=== PATIENT | male | born 1960 | race Caucasian/White ===

== ENCOUNTER 2022-06-25 13:12 | Emergency (ER) | payer OTHER, SELFPAY ==
--- NOTE | ~2022-06-25 | US_ITS ---
EXAMINATION: US VENOUS ULTRASOUND WITH DOPPLER LOWER EXTREMITY, LEFT CLINICAL INFORMATION: Swelling and redness x4 days COMPARISON: None TECHNIQUE: Ultrasound of the deep veins is performed from the hip to the calf with compression sonography and color and pulse Doppler assessment. Spectral analysis with color-flow imaging is performed. FINDINGS: There is normal venous compression and respiratory variation and augmented flow. The visualized common femoral vein, superficial femoral vein, profunda femoral vein, popliteal vein, and the trifurcation region shows no evidence of deep venous thrombosis. Mildly prominent normal architecture left groin lymph node seen measuring 2.9 x 1.1 x 3.5 cm. If the patient's symptoms persist, followup ultrasound in 5 days 7 days might be of value to exclude proximal propagation from a non-visualized calf vein. US/US venous duplex LE IMPRESSION: No DVT demonstrated in the left lower extremity.
[2022-06-25 13:15] VITALS: BP 150/93; PULSE 88; RESP 16; TEMP 36.6; O2SAT 99; BMI 29.8
--- NOTE | 2022-06-25 13:16 | ED.GENADULT ---
HPI - General Adult General Chief complaint: Extremity Problem <Sravani Liang NP - Last Filed: 06/25/22 13:19> Stated complaint: L foot swelling/redness <Sravani Liang NP - Last Filed: 06/25/22 13:19> Time Seen by Provider: 06/25/22 14:19 <Sravani Liang NP - Last Filed: 06/25/22 13:19> Source: patient <GARO Delgado - Last Filed: 06/25/22 16:03> Mode of arrival: ambulatory <GARO Delgado - Last Filed: 06/25/22 16:03> Limitations: no limitations <GARO Delgado Last Filed: 06/25/22 16:03> History of Present Illness HPI narrative: 62-year-old male who denies any medical history presenting to the ER with complaints of atraumatic left lower extremity pain/redness/swelling for the past 5 days worse today. Reports he had a temperature a few days ago at 101.0. He called [facility] and they came to his house and reported that he would need an ultrasound to rule out a DVT. He reports he has never had this in the past. He denies any fevers since he had the fever a few days ago. He denies any dizziness, neck pain/stiffness, chest pain or shortness of breath, dyspnea exertion, orthopnea, palpitations, paresthesias, calf tenderness, recent travel on a long plane/train/car ride, history of DVT or PE, hypercoagulation disorder, history of cancer, recent falls or trauma, recent immobilization or surgery or any other symptoms complaints or concerns at this time. <GARO Delgado - Last Filed: 06/25/22 16:03> MD complaint: Left lower extremity pain/swelling/redness <GARO Delgado Last Filed: 06/25/22 16:03> Onset (ago): day(s) (5) <GARO Delgado Last Filed: 06/25/22 16:03> Location: left and lower extremity <GARO Delgado Last Filed: 06/25/22 16:03> Severity: moderate <GARO Delgado Last Filed: 06/25/22 16:03> Quality: aching <GARO Delgado Last Filed: 06/25/22 16:03> Pain Consistency: constant <GARO Delgado Last Filed: 06/25/22 16:03> Relieving factors: none <GARO Delgado Last Filed: 06/25/22 16:03> Exacerbating factors: other (Palpation) <GARO Delgado Last Filed: 06/25/22 16:03> Associated symptoms: denies other symptoms <GARO Delgado Last Filed: 06/25/22 16:03> Treatments prior to arrival: none <GARO Delgado Last Filed: 06/25/22 16:03> Related Data Home medications: Previous Rx's Medication Instructions Recorded cephalexin 500 mg capsule 500 mg PO Q6H 10 days #40 caps 06/25/22 doxycycline monohydrate 100 mg 100 mg PO BID 10 days #20 tabs 06/25/22 tablet <Sravani Liang NP - Last Filed: 06/25/22 13:19> Allergies/adverse reactions: Allergies Allergy/AdvReac Type Severity Reaction Status Date / Time No Known Allergies Allergy Verified 06/25/22 13:17 <ZHENG Hall Last Filed: 06/25/22 13:19> Review of Systems Review of Systems: Constitutional : No Weight loss, No Fever, No Chills, No Night Sweats, No Fatigue, No Malaise ENT/Mouth : No Hearing loss, No Ear Pain, No Nasal Congestion, No Sinus Pain, No Hoarseness, No sore throat, No Rhinorrhea, No Swallowing Difficulty Eyes: No Eye Pain, No Swelling, No Redness, No Foreign Body, No Discharge, No Vision Changes Cardiovascular : No Chest Pain, No SOB, No Dyspnea on Exertion, No Orthopnea, No Edema, No Palpitations Respiratory : No Cough, No Sputum, No Wheezing, No Smoke Exposure, No Dyspnea Gastrointestinal : No Nausea, No Vomiting, No Diarrhea, No Constipation, No abdominal Pain, No Hematochezia, No Melena Genitourinary : no irregular bleeding, No Dysuria, No Urinary Frequency, No Hematuria, No Urinary Incontinence, No Urgency, No Flank Pain, No Urinary Flow Changes, No Hesitancy Musculoskeletal : No joint pain, No Myalgias, No Joint Swelling Skin : +LLE leg swelling/erythema/pain, No Skin Lesions Neuro : No Weakness, No Numbness, No Paresthesias, No Loss of Consciousness, No Dizziness, No Headache Psych : No Anxiety/Panic, No Depression, No SI/HI/AH/VH, No Social Issues, Heme/Lymph: No Bruising, No Bleeding,No Lymphadenopathy Endocrine : No Polyuria, No Polydipsia, No Temperature Intolerance <GARO Delgado - Last Filed: 06/25/22 16:03> Yes all other systems are reviewed and are negative <GARO Delgado - Last Filed: 06/25/22 16:03> FOR[facility]LY [facility] Past Medical History Attestation statement: The following information was validated with the patient. <GARO Delgado - Last Filed: 06/25/22 16:03> Source: old records reviewed and nursing notes reviewed <GARO Delgado - Last Filed: 06/25/22 16:03> Social History Social History: Social History Alcohol intake: never Smoked in Last 30 Days: No Use of substances other than those prescribed or required for medical reasons: No Advance Directives: No Advance Directives Information Provided: No <Sravani Liang NP - Last Filed: 06/25/22 13:19> Physical Exam ED Vital Signs: Vital Signs - 24 hr 06/25/22 13:15 Temperature 97.9 F Pulse Rate 88 Respiratory Rate 16 Blood Pressure 150/93 H Pulse Oximetry 99 Oxygen Delivery Method Room Air BMI result Body Mass Index 29.8 <Sravani Liang NP - Last Filed: 06/25/22 13:19> Vital Signs - 24 hr 06/25/22 13:15 Temperature 97.9 F Pulse Rate 88 Respiratory Rate 16 Blood Pressure 150/93 H Pulse Oximetry 99 Oxygen Delivery Method Room Air BMI result Body Mass Index 29.8 vital signs have been reviewed as normal and appeared to be correct. Blood pressure normal. Heart rate normal. Respiration rate normal. Temperature normal. Oxygen saturation normal. <GARO Delgado Last Filed: 06/25/22 16:03> Appearance: Alert. Oriented X3. No acute distress. Head: Normal external exam. Normocephalic. Atraumatic. Eyes: PERRLA. EOMI. Conjunctiva and sclera normal. Eyelids normal. ENT: Pharynx normal. Uvula midline. Moist mucous membranes. No lesions/ulcerations or masses noted on the tongue. Normal voice. No trismus noted. No drooling noted. No muffled voice noted. Neck: Normal inspection. Neck supple. FROM. No adenopathy. Thyroid Normal. No tracheal deviation noted. No crepitus is noted. No meningeal signs. No neck mass noted. No signs of trauma noted. CVS: Normal heart rate and rhythm. Heart sound normal. Pulses normal throughout. No murmurs/rales/gallops. Respiratory: No respiratory distress. Painless inspiration. Breath sounds normal. No wheezes/rales/rhonchi noted. Chest nontender. No crepitus is noted. No signs of trauma noted. No accessory muscle usage noted or decreased air movement noted. No signs of trauma. Back: Full range of motion noted. Nontender. Skin: Skin warm and dry. Normal skin color. Normal skin turgor. To left lower extremity patient has moderate erythema/warm to touch and tenderness palpation with soft tissues swelling at the proximal aspect of the foot radiating all the way up to the knee circumferential. No additional rashes/lesions/lacerations noted. Extremities: + LLE edema. No right lower extremity edema or calf tenderness noted. No left calf tenderness noted. No calf tenderness is noted. Extremities exhibit normal range of motion and nontender. Neuro: Oriented X 3. No motor deficit. No sensory deficit. Reflexes normal. Normal steady gait. No focal neuro deficits noted. CN's II-XII intact bilaterally? Vascular: + radial pulses/+ 2 distal pedal pulses/+2 dorsalis pedis b/l. Normal cap refill. No cyanosis noted to upper extremity nails and lower extremity toes nails. <GARO Delgado - Last Filed: 06/25/22 16:03> Course Course Course Narrative: This is a rapid medical exam> Deferred additional HPI, ROS, PE to primary provider. 62 yo male healthy here with LLE redness/swelling, +max temp 101 x 5 days with no known injury or trauma. Seen by dispatch and recommended to come in for US to r/o DVT. Will obtain labs, ultrasound. VSS <Sravani Liang NP - Last Filed: 06/25/22 13:19> Reevaluation(s) Reevaluation #1: 62-year-old male who denies any medical history presenting to the ER with complaints of atraumatic left lower extremity pain/redness/swelling for the past 5 days worse today. Reports he had a temperature a few days ago at 101.0. He called [facility] and they came to his house and reported that he would need an ultrasound to rule out a DVT. Not c/w necrotizing fasciitis/ myositis/ arterial occlusion/ osteomyelitis/ compartment syndrome/ septic joint Labs obtained reviewed patient's H&H 13.9/40.0. Potassium 3.2. BUN 20. Random glucose 124. AST/ALT 38/42. Lactic acid within normal limits. Blood cultures pending. Otherwise all other labs are within normal limits. Venous duplex ultrasound of left lower extremity negative for DVT or any other acute processes. I did consider admission although the patient has not been on any antibiotics therefore will trial a course of antibiotics and her symptoms worsen patient will need to return within 48 hours for admission. Otherwise will DC home antibiotics and symptomatic treatment. Will also give p.o. potassium at this time with instructions to follow-up with PCP within the next few days. Patient understands agrees with this plan. <GARO Delgado - Last Filed: 06/25/22 16:03> Time: 15:50 <GARO Delgado - Last Filed: 06/25/22 16:03> Medications Administered Discontinued Medications Generic Name Dose Route Start Last Admin Trade Name Freq PRN Reason Stop Dose Admin Ceftriaxone Sodium 2 gm/ 50 mls @ 100 mls/hr 06/25/22 15:03 06/25/22 15:25 Sodium Chloride IV 06/25/22 15:32 100 mls/hr ONCE ONE Administration <Sravani Liang NP - Last Filed: 06/25/22 13:19> Medications Administered Discontinued Medications Generic Name Dose Route Start Last Admin Trade Name Freq PRN Reason Stop Dose Admin Ceftriaxone Sodium 2 gm/ 50 mls @ 100 mls/hr 06/25/22 15:03 06/25/22 15:25 Sodium Chloride IV 06/25/22 15:32 100 mls/hr ONCE ONE Administration <GARO Delgado - Last Filed: 06/25/22 16:03> Medical Decision Making Lab Data MDM Lab Attestation statement: I reviewed the patient's lab results. <GARO Delgado - Last Filed: 06/25/22 16:03> Result Diagrams: 06/25/22 13:50 06/25/22 13:50 <Sravani Liang NP - Last Filed: 06/25/22 13:19> Labs: Lab Results 06/25/22 06/25/22 06/25/22 Range/Units 13:50 13:50 13:50 WBC 9.9 (4.8-10.8) X10*3/uL RBC 4.80 (4.60-5.80) X10*6/uL Hgb 13.9 L (14.0-18.0) g/dl Hct 40.0 L (42.0-52.0) % MCV 83.3 (80.0-98.0) fL MCH 29.0 (27.0-33.0) pg MCHC 34.8 (31.0-36.0) g/dl RDW 13.9 (11.0-16.0) % Plt Count 214 (160-400) X10*3/uL MPV 10.7 (9.4-12.4) fL Immature Gran % (Auto) 0.5 H (0.0-0.4) % Neut % (Auto) 59.7 (45-73) % Lymph % (Auto) 27.5 (20-40) % [place] % (Auto) 10.3 (2-11) % Eos % (Auto) 1.7 (0-4) % Baso % (Auto) 0.3 (0-2) % Lymph # (Auto) 2.7 (1.2-4.9) X10*3/uL [place] # (Auto) 1.0 (0.1-1.2) X10*3/uL Eos # (Auto) 0.2 (0.0-0.4) X10*3/uL Baso # (Auto) 0.0 (0.0-0.2) X10*3/uL Abs Immat Gran (auto) 0.05 H (0.00-0.03) X10*3/uL Absolute Neuts (auto) 5.9 (2.0-8.3) x10*3/uL Absolute Nucleated RBC 0.000 (0.0-0.012) X10*3/uL Nucleated RBC % (auto) 0.0 (0.0-0.2) /100WBC PT 10.7 (10.0-13.1) SEC INR 0.9 (0.9-1.1) Sodium 141 (135-145) mmol/L Potassium 3.2 L (3.3-5.1) mmol/L Chloride 101 (96-108) mmol/L Carbon Dioxide 29 (22-29) mmol/L Anion Gap 14 (12-20) BUN 20 H (9-16) mg/dL Creatinine 1.17 (0.5-1.4) mg/dL Estim Creat Clear Calc 79.0 Estimated GFR > 60 Random Glucose 124 H (60-115) mg/dL Lactic Acid (0.5-2.0) mmol/L Calcium 9.1 (8.4-10.2) mg/dL Total Bilirubin 0.6 (0.0-1.0) mg/dL Direct Bilirubin 0.2 (0.0-0.5) mg/dL AST 38 H (5-37) U/L ALT 42 H (0-40) U/L Alkaline Phosphatase 71 (39-117) U/L Total Protein 6.9 (6.5-8.0) g/dL Albumin 3.8 (3.5-5.0) g/dL 06/25/22 Range/Units 13:50 WBC (4.8-10.8) X10*3/uL RBC (4.60-5.80) X10*6/uL Hgb (14.0-18.0) g/dl Hct (42.0-52.0) % MCV (80.0-98.0) fL MCH (27.0-33.0) pg MCHC (31.0-36.0) g/dl RDW (11.0-16.0) % Plt Count (160-400) X10*3/uL MPV (9.4-12.4) fL Immature Gran % (Auto) (0.0-0.4) % Neut % (Auto) (45-73) % Lymph % (Auto) (20-40) % [place] % (Auto) (2-11) % Eos % (Auto) (0-4) % Baso % (Auto) (0-2) % Lymph # (Auto) (1.2-4.9) X10*3/uL [place] # (Auto) (0.1-1.2) X10*3/uL Eos # (Auto) (0.0-0.4) X10*3/uL Baso # (Auto) (0.0-0.2) X10*3/uL Abs Immat Gran (auto) (0.00-0.03) X10*3/uL Absolute Neuts (auto) (2.0-8.3) x10*3/uL Absolute Nucleated RBC (0.0-0.012) X10*3/uL Nucleated RBC % (auto) (0.0-0.2) /100WBC PT (10.0-13.1) SEC INR (0.9-1.1) Sodium (135-145) mmol/L Potassium (3.3-5.1) mmol/L Chloride (96-108) mmol/L Carbon Dioxide (22-29) mmol/L Anion Gap (12-20) BUN (9-16) mg/dL Creatinine (0.5-1.4) mg/dL Estim Creat Clear Calc Estimated GFR Random Glucose (60-115) mg/dL Lactic Acid 1.3 (0.5-2.0) mmol/L Calcium (8.4-10.2) mg/dL Total Bilirubin (0.0-1.0) mg/dL Direct Bilirubin (0.0-0.5) mg/dL AST (5-37) U/L ALT (0-40) U/L Alkaline Phosphatase (39-117) U/L Total Protein (6.5-8.0) g/dL Albumin (3.5-5.0) g/dL <Sravani Liang, [employer] SALES CONSULTANT - Last Filed: 06/25/22 13:19> Lab Results 06/25/22 06/25/22 06/25/22 Range/Units 13:50 13:50 13:50 WBC 9.9 (4.8-10.8) X10*3/uL RBC 4.80 (4.60-5.80) X10*6/uL Hgb 13.9 L (14.0-18.0) g/dl Hct 40.0 L (42.0-52.0) % MCV 83.3 (80.0-98.0) fL MCH 29.0 (27.0-33.0) pg MCHC 34.8 (31.0-36.0) g/dl RDW 13.9 (11.0-16.0) % Plt Count 214 (160-400) X10*3/uL MPV 10.7 (9.4-12.4) fL Immature Gran % (Auto) 0.5 H (0.0-0.4) % Neut % (Auto) 59.7 (45-73) % Lymph % (Auto) 27.5 (20-40) % [place] % (Auto) 10.3 (2-11) % Eos % (Auto) 1.7 (0-4) % Baso % (Auto) 0.3 (0-2) % Lymph # (Auto) 2.7 (1.2-4.9) X10*3/uL [place] # (Auto) 1.0 (0.1-1.2) X10*3/uL Eos # (Auto) 0.2 (0.0-0.4) X10*3/uL Baso # (Auto) 0.0 (0.0-0.2) X10*3/uL Abs Immat Gran (auto) 0.05 H (0.00-0.03) X10*3/uL Absolute Neuts (auto) 5.9 (2.0-8.3) x10*3/uL Absolute Nucleated RBC 0.000 (0.0-0.012) X10*3/uL Nucleated RBC % (auto) 0.0 (0.0-0.2) /100WBC PT 10.7 (10.0-13.1) SEC INR 0.9 (0.9-1.1) Sodium 141 (135-145) mmol/L Potassium 3.2 L (3.3-5.1) mmol/L Chloride 101 (96-108) mmol/L Carbon Dioxide 29 (22-29) mmol/L Anion Gap 14 (12-20) BUN 20 H (9-16) mg/dL Creatinine 1.17 (0.5-1.4) mg/dL Estim Creat Clear Calc 79.0 Estimated GFR > 60 Random Glucose 124 H (60-115) mg/dL Lactic Acid (0.5-2.0) mmol/L Calcium 9.1 (8.4-10.2) mg/dL Total Bilirubin 0.6 (0.0-1.0) mg/dL Direct Bilirubin 0.2 (0.0-0.5) mg/dL AST 38 H (5-37) U/L ALT 42 H (0-40) U/L Alkaline Phosphatase 71 (39-117) U/L Total Protein 6.9 (6.5-8.0) g/dL Albumin 3.8 (3.5-5.0) g/dL 06/25/22 Range/Units 13:50 WBC (4.8-10.8) X10*3/uL RBC (4.60-5.80) X10*6/uL Hgb (14.0-18.0) g/dl Hct (42.0-52.0) % MCV (80.0-98.0) fL MCH (27.0-33.0) pg MCHC (31.0-36.0) g/dl RDW (11.0-16.0) % Plt Count (160-400) X10*3/uL MPV (9.4-12.4) fL Immature Gran % (Auto) (0.0-0.4) % Neut % (Auto) (45-73) % Lymph % (Auto) (20-40) % [place] % (Auto) (2-11) % Eos % (Auto) (0-4) % Baso % (Auto) (0-2) % Lymph # (Auto) (1.2-4.9) X10*3/uL [place] # (Auto) (0.1-1.2) X10*3/uL Eos # (Auto) (0.0-0.4) X10*3/uL Baso # (Auto) (0.0-0.2) X10*3/uL Abs Immat Gran (auto) (0.00-0.03) X10*3/uL Absolute Neuts (auto) (2.0-8.3) x10*3/uL Absolute Nucleated RBC (0.0-0.012) X10*3/uL Nucleated RBC % (auto) (0.0-0.2) /100WBC PT (10.0-13.1) SEC INR (0.9-1.1) Sodium (135-145) mmol/L Potassium (3.3-5.1) mmol/L Chloride (96-108) mmol/L Carbon Dioxide (22-29) mmol/L Anion Gap (12-20) BUN (9-16) mg/dL Creatinine (0.5-1.4) mg/dL Estim Creat Clear Calc Estimated GFR Random Glucose (60-115) mg/dL Lactic Acid 1.3 (0.5-2.0) mmol/L Calcium (8.4-10.2) mg/dL Total Bilirubin (0.0-1.0) mg/dL Direct Bilirubin (0.0-0.5) mg/dL AST (5-37) U/L ALT (0-40) U/L Alkaline Phosphatase (39-117) U/L Total Protein (6.5-8.0) g/dL Albumin (3.5-5.0) g/dL <GARO Delgado - Last Filed: 06/25/22 16:03> Independent Interpretation I performed an independent interpretation of an: Ultrasound <GARO Delgado - Last Filed: 06/25/22 16:03> Interpretation: [place] [id number] Ultrasound Report Signed Patient: Kye Mesa MR#: [id number] : 1960 Acct:[id number] Age/Sex: 62 / M ADM Date: 06/25/22 Loc: HO.ED Attending Dr: Ordering Physician: Sravani Rojas NP Date of Service: 06/25/22 Procedure(s): US venous duplex LE Accession Number(s): [id number] cc: Sravani Rojas NP~ EXAMINATION:? US VENOUS ULTRASOUND WITH DOPPLER LOWER EXTREMITY, LEFT CLINICAL INFORMATION:? Swelling and redness x4 days COMPARISON:? None TECHNIQUE: Ultrasound of the deep veins is performed from the hip to the calf with compression sonography and color and pulse Doppler assessment. Spectral analysis with color-flow imaging is performed. FINDINGS: There is normal venous compression and respiratory variation and augmented flow. The visualized common femoral vein, superficial femoral vein, profunda femoral vein, popliteal vein, and the trifurcation region shows no evidence of deep venous thrombosis. ? Mildly prominent normal architecture left groin lymph node seen measuring 2.9 x 1.1 x 3.5 cm. If the patient's symptoms persist, followup ultrasound in 5 days 7 days might be of value to exclude proximal propagation from a non-visualized calf vein. US/US venous duplex LE LT IMPRESSION: No DVT demonstrated in the left lower extremity. <GARO Delgado - Last Filed: 06/25/22 16:03> Radiology Impression Discussion of test interpretation with radiology: I have reviewed the radiologist's reading. <GARO Delgado - Last Filed: 06/25/22 16:03> Independent Historian Clinical information obtained from an independent historian. History obtained from or confirmed by: Spouse <GARO Delgado - Last Filed: 06/25/22 16:03> Prescription Management I considered prescription management with: Antibiotic <GARO Delgado Last Filed: 06/25/22 16:03> Critical Care Time Critical Care Time Critical Care Time: Yes <GARO Delgado - Last Filed: 06/25/22 16:03> Total Critical Care Time: 60 <GARO Delgado - Last Filed: 06/25/22 16:03> Attestation: I personally attest to this time spent taking care of the patient <GARO Delgado Last Filed: 06/25/22 16:03> Discharge Plan Discharge Clinical Impression: Erysipelas, Low blood potassium <Sravani Liang NP - Last Filed: 06/25/22 13:19> Patient Disposition: Home, Self-Care <Sravani Liang NP - Last Filed: 06/25/22 13:19> Instructions: Cellulitis (ED), Potassium Content of Foods List (ED), Hypokalemia (ED) <Sravani Liang NP - Last Filed: 06/25/22 13:19> Prescriptions: New doxycycline monohydrate 100 mg tablet 100 mg PO BID 10 Days Qty: 20 0RF cephalexin 500 mg capsule 500 mg PO Q6H 10 Days Qty: 40 0RF <Sravani Liang NP - Last Filed: 06/25/22 13:19> Referrals: Physician,Unknown J [Primary Care Provider] - 2 days (your pcp within 2 days ) <Sravani Liang NP - Last Filed: 06/25/22 13:19> Stand Alone Forms: Work/School Release <Sravani Liang NP - Last Filed: 06/25/22 13:19>
--- NOTE | 2022-06-25 13:54 | PC.NURSE ---
pt AOx3, vss. Pt presents with redness and swelling in his left leg. Ultrasound of leg preformed per order. Labs drawn per order. Iv started.
[2022-06-25 13:58] LABS: MANUAL DIFF FLAG NO
[2022-06-25 13:59] LABS: Basophils Percent Auto 0.3 % (0-2); Eosinophils Absolute Auto 0.2 X10*3/uL (0.0-0.4); Eosinophils Percent Auto 1.7 % (0-4); Hemoglobin 13.9 g/dl (14.0-18.0); Imm Gran Abs Auto 0.05 X10*3/uL (0.00-0.03); Imm Gran Pct Auto 0.5 % (0.0-0.4); Lymphocytes Absolute Auto 2.7 X10*3/uL (1.2-4.9); Lymphocytes Percent Auto 27.5 % (20-40); Mean Corpuscular HGB Conc 34.8 g/dl (31.0-36.0); Mean Corpuscular Volume 83.3 fL (80.0-98.0); Mean Platelet Volume 10.7 fL (9.4-12.4); Monocytes Percent Auto 10.3 % (2-11); Neutrophils Absolute Auto 5.9 x10*3/uL (2.0-8.3); Neutrophils Percent Auto 59.7 % (45-73); Platelet Count 214 X10*3/uL (160-400); Red Cell Distribution Width 13.9 % (11.0-16.0); White Blood Count 9.9 X10*3/uL (4.8-10.8)
[2022-06-25 14:05] LABS: INTERNATIONAL NORM RATIO 0.9 (0.9-1.1); Prothrombin Time 10.7 SEC (10.0-13.1)
[2022-06-25 14:12] LABS: Lactic Acid 1.3 mmol/L (0.5-2.0)
[2022-06-25 14:16] LABS: Alanine Aminotransferase 42 U/L (0-40); Albumin Level 3.8 g/dL (3.5-5.0); Alkaline Phosphatase 71 U/L (39-117); Anion Gap 14 (12-20); Aspartate Amino Transferase 38 U/L (5-37); Bilirubin Direct 0.2 mg/dL (0.0-0.5); Bilirubin Total 0.6 mg/dL (0.0-1.0); Blood Urea Nitrogen 20 mg/dL (9-16); Calcium 9.1 mg/dL (8.4-10.2); Carbon Dioxide 29 mmol/L (22-29); Chloride 101 mmol/L (96-108); Estimated Glomerular Filt Rate > 60; Glucose Random 124 mg/dL (60-115); Potassium 3.2 mmol/L (3.3-5.1); Sodium 141 mmol/L (135-145); Total Protein 6.9 g/dL (6.5-8.0)
[2022-06-25] MEDS: cefTRIAXone sodium 2 GM in 0.9 % Sodium Chloride 50 ML IV (15:25)
--- NOTE | 2022-06-25 15:30 | PC.NURSE ---
iv antibiotics running er per order, pt lle outlined per reqest of provider
[2022-06-25] MEDS: Potassium Chloride ER 20 MEQ TAB.ER.PRT PO (16:09)
== END 2022-06-25 16:12 | disposition home or self-care (01) ==
PROVIDERS: Nurse Practitioner Family; Emergency Provider Student in an Organized Health Care Education/Training Program
DX: R60.0 Localized edema (principal); A46 Erysipelas; E87.6 Hypokalemia; R50.9 Fever, unspecified; Z79.899 Other long term (current) drug therapy
CPT/HCPCS: 36415; 80048; 80076; 83605; 85025; 85610; 87040; 93971; 96365; 99284; J0696

== ENCOUNTER 2022-07-08 11:03 | Outpatient (REF) | payer OTHER, SELFPAY ==
--- NOTE | ~2022-07-08 | US_ITS ---
EXAMINATION: US VENOUS ULTRASOUND WITH DOPPLER LOWER EXTREMITY, LEFT CLINICAL INFORMATION: Left leg edema. COMPARISON: None TECHNIQUE: Ultrasound of the deep veins is performed from the hip to the calf with compression sonography and color and pulse Doppler assessment. Spectral analysis with color-flow imaging is performed. FINDINGS: There is normal venous compression and respiratory variation and augmented flow. The visualized common femoral vein, superficial femoral vein, profunda femoral vein, popliteal vein, and the trifurcation region shows no evidence of deep venous thrombosis. No Ribera's cyst is seen. The technologist demonstrates an incidentally visualized normal-appearing left inguinal lymph node. US/US venous duplex LE LT IMPRESSION: No DVT demonstrated in the left lower extremity.
== END 2022-07-08 11:04 | disposition home or self-care (01) ==
LOC: HO.US 11:03
PROVIDERS: Visit Provider Physician Assistant
DX: R60.0 Localized edema (principal)
CPT/HCPCS: 93971